=== PATIENT | male | born 1985 | race Caucasian/White ===

== ENCOUNTER 2020-03-28 10:50 | Emergency (ER) | payer OTHER ==
[2020-03-28] MEDS ORDERED: SILVER SULFADIAZINE 1% CREAM 50 GM TP ONE (11:09)
[2020-03-28 11:11] VITALS: BP 139/91
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
== END 2020-03-28 11:40 | disposition home or self-care (01) ==
LOC: ER 10:50
DX: T23.272A Burn of second degree of left wrist, initial encounter (principal); X12.XXXA Contact with other hot fluids, initial encounter; Y93.89 Activity, other specified; Y92.59 Other trade areas as the place of occurrence of the external cause; Y99.0 Civilian activity done for income or pay
CPT/HCPCS: 99283; J3490

== ENCOUNTER 2020-03-30 10:11 | Emergency (ER) | payer OTHER ==
[2020-03-30 10:15] VITALS: BP 131/81
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
== END 2020-03-30 10:35 | disposition home or self-care (01) ==
LOC: ER 10:11
DX: T30.0 Burn of unspecified body region, unspecified degree (principal); X08.8XXD Exposure to other specified smoke, fire and flames, subsequent encounter
CPT/HCPCS: 99283